=== PATIENT | male | born 1970 | race Caucasian/White ===

== ENCOUNTER 2016-08-06 13:54 | Emergency (ER) | payer SELFPAY ==
[~2016-08-06] VITALS: Ht 170.2 cm; Wt 72.0 kg
[2016-08-06 14:14] VITALS: BP 132/79
[2016-08-06 14:54] LABS: BLOOD UREA NITROGEN 15 mg/dL (7-18)
== END 2016-08-06 15:31 | disposition home or self-care (01) ==
LOC: ED 15:25
DX: K64.8 Other hemorrhoids (principal)
CPT/HCPCS: 36415; 80048; 82040; 85025; 99284

== ENCOUNTER 2019-04-23 16:21 | Emergency (ER) | payer SELFPAY ==
[~2019-04-23] VITALS: Ht 170.2 cm; Wt 77.7 kg
[2019-04-23] MEDS ORDERED: DIPHENHYDRAMINE 25 MG CAPSULE ONE (16:45)
[2019-04-23] MEDS ORDERED: KETOROLAC 30 MG/1 ML ONE (16:45)
[2019-04-23] MEDS ORDERED: PROCHLORPERAZINE 5 MG/ML, 2ML ONE (16:45)
--- NOTE | 2019-04-23 16:53 | NUR ---
MEDS ADMIN PER APR. PT COMPLIANT WITH CARE. LABS DRAWN.
[2019-04-23] MEDS ORDERED: PROCHLORPERAZINE 5 MG/ML, 2ML IM ONE (17:00)
[2019-04-23] MEDS ORDERED: KETOROLAC 30 MG/1 ML IM ONE (17:00)
[2019-04-23] MEDS ORDERED: DIPHENHYDRAMINE 25 MG CAPSULE PO ONE (17:00)
[2019-04-23 17:22] VITALS: BP 138/85
[2019-04-23 17:22] LABS: ALANINE AMINOTRANSFERASE 15 U/L (12-78); ALBUMIN 3.7 g/dL (3.4-5.0); ANION GAP 7 mmol/L (5-15); CALCIUM 8.9 mg/dL (8.5-10.1); CHLORIDE 106 mmol/L (98-107); CREATININE 1.08 mg/dL (0.7-1.3)
[2019-04-23 17:24] LABS: ALKALINE PHOSPHATASE 77 U/L (45-117); BILIRUBIN,TOTAL 0.5 mg/dL (0.2-1.0); TOTAL PROTEIN 6.8 g/dL (6.4-8.2)
== END 2019-04-23 17:24 | disposition home or self-care (01) ==
LOC: ED 17:13
DX: R51 Headache (principal); R11.0 Nausea; Z72.9 Problem related to lifestyle, unspecified
CPT/HCPCS: 36415; 80053; 80307; 96372; 99284; J0780; J1885; Q0163